=== PATIENT | female | born 1975 | race African-American/Black ===

== ENCOUNTER 2017-07-22 15:22 | Inpatient (IN) | payer MEDICAID ==
[~2017-07-22] VITALS: Ht 167.6 cm; Wt 86.1 kg
[~2017-07-22 15:22] MED LIST: BENZ2TAB10 PO; QUET300T2 PO; TRAZ150T79 PO
[2017-07-22 16:34] VITALS: BP 119/72
[2017-07-22] MEDS: LORazepam 2 MG TABLET PO PRN (17:00)
[2017-07-22] MEDS ORDERED: PNEUMOCOCCAL VACCINE POLYVALENT 0.5 ML VIAL [PPSV23] IM ONE (17:00)
[2017-07-22] MEDS ORDERED: INFLUENZA VIRUS VACCINE QVS 2017-18 (3YR+)/PF 60 MCG/0.5 ML SYRINGE IM ONE (17:00)
[2017-07-22 17:18] VITALS: BP 120/88
[2017-07-23] MEDS ORDERED: PETROLATUM,WHITE 71 GM JELLY TP PRN (07:15)
[2017-07-23] MEDS ORDERED: BENZOCAINE/MENTHOL LOZENGE MM PRN (07:15)
[2017-07-23] MEDS ORDERED: ALBUTEROL SULFATE HFA 90 MCG/PUFF 8 GM INHALER IH PRN (07:15)
[2017-07-23] MEDS ORDERED: IBUPROFEN 600 MG TABLET PO PRN (07:15)
[2017-07-23] MEDS ORDERED: CloNIDine HCL 0.1 MG TABLET PO PRN (07:15)
[2017-07-23] MEDS ORDERED: LOPERAMIDE HCL 2 MG CAPSULE PO PRN (07:15)
[2017-07-23] MEDS ORDERED: ACETAMINOPHEN 325 MG TABLET PO PRN (07:15)
[2017-07-23] MEDS ORDERED: ONDANSETRON HCL 4 MG TABLET PO PRN (07:15)
[2017-07-23] MEDS ORDERED: BACITRACIN 28.4 GM OINTMENT TP PRN (07:15)
[2017-07-23] MEDS ORDERED: MAGNESIUM HYDROXIDE SUSPENSION 30 ML UDCUP PO PRN (07:15)
[2017-07-23] MEDS ORDERED: MAG HYDROX/AL HYDROX/SIMETH ES 30 ML SUSPENSION UDCUP PO PRN (07:15)
[2017-07-23 08:31] LABS: BASOPHILS % (AUTO) 0.5 % (0.0-2.0); EOSINOPHILS % (AUTO) 6.8 % (1.0-6.0); HEMATOCRIT 39.1 % (36-46); HEMOGLOBIN 13.1 g/dL (12.0-16.0); LYMPHOCYTES # (AUTO) 2.9 K/uL (1.0-4.8); LYMPHOCYTES % (AUTO) 48.4 % (22.0-44.0); MEAN CORPUSCULAR HEMOGLOBIN 30.8 pg (26.0-34.0); MEAN CORPUSCULAR HGB CONC 33.4 G/dL (31.0-37.0); MEAN CORPUSCULAR VOLUME 92 fL (80-100); MONOCYTES # (AUTO) 0.4 K/uL (0.1-1.0); NEUTROPHILS # (AUTO) 2.2 K/uL (1.8-7.7); NEUTROPHILS % (AUTO) 37.3 % (40.0-70.0); PLATELET COUNT (AUTO) 267 K/uL (150-450); RED BLOOD CELL COUNT(AUTO) 4.24 MIL/uL (4.00-5.20); RED CELL DISTRIBUTION WIDTH 17.3 % (11.5-14.5)
[2017-07-23 08:44] LABS: HEMOGLOBIN A1C 5.5 % (4.5-6.2)
[2017-07-23 08:52] LABS: ALANINE AMINOTRANSFERASE 17 U/L (12-78); ALBUMIN 3.1 g/dL (3.4-5.0); ALKALINE PHOSPHATASE 118 U/L (46-116); ANION GAP 3 mmol/L (8-16); ASPARTATE AMINOTRANSFERASE 16 U/L (15-37); BILIRUBIN,TOTAL 0.3 mg/dL (0.1-1.0); CALCIUM, TOTAL 10.2 mg/dL (8.8-10.5); CARBON DIOXIDE 30 mmol/L (22-29); CHLORIDE 107 mmol/L (98-107); CREATININE 0.93 mg/dL (0.60-1.30); FREE T4 (FREE THYROXINE) 0.93 ng/dL (0.76-1.46); GLOMERULAR FILTR. RATE CALC > 60 mL/min (>60); GLUCOSE,RANDOM 99 mg/dL (70-110); HCG,QUANTITATIVE 2 mIU/mL (0-6); HDL CHOLESTEROL 52 mg/dL (40-60); POTASSIUM 4.6 mmol/L (3.5-5.1); SODIUM SERUM 140 mmol/L (136-145); THYROID STIMULATING HORMONE 0.96 uIU/mL (0.36-3.74); TOTAL PROTEIN, SERUM 6.5 g/dL (6.4-8.2); TRIGLYCERIDES 64 mg/dL (15-150); UREA NITROGEN, BLOOD 9 mg/dL (7-18)
[2017-07-23] MEDS: CHOLECALCIFEROL (VIT D3) 1,000 UNITS TABLET PO SCH (08:57)
[2017-07-23 09:01] LABS: CHOL/HDL RATIO 3.5 (3.9-5.7); CHOLESTEROL 180 mg/dL (131-200); LDL CHOL (CALC.) 115 mg/dL (0-130)
[2017-07-23] MEDS: LORazepam 2 MG TABLET PO PRN ×2 (11:31→16:27)
[2017-07-23 16:00] VITALS: BP 113/75
[2017-07-23] MEDS: TraZODone HCL 150 MG TABLET PO SCH (20:45)
[2017-07-23] MEDS: QUEtiapine FUMARATE 300 MG TABLET PO SCH (20:45)
[2017-07-23] MEDS: ZOLPIDEM TARTRATE 10 MG TABLET PO PRN (20:45)
[2017-07-23] MEDS: BENZTROPINE MESYLATE 2 MG TABLET PO SCH (20:45)
[2017-07-24 07:12] VITALS: BP 125/72
[2017-07-24] MEDS: CHOLECALCIFEROL (VIT D3) 1,000 UNITS TABLET PO SCH (08:45)
[2017-07-24] MEDS: LORazepam 2 MG TABLET PO PRN (16:13)
[2017-07-24 16:19] VITALS: BP 105/61
[2017-07-24] MEDS: QUEtiapine FUMARATE 300 MG TABLET PO SCH (20:26)
[2017-07-24] MEDS: TraZODone HCL 150 MG TABLET PO SCH (20:26)
[2017-07-24] MEDS: BENZTROPINE MESYLATE 2 MG TABLET PO SCH (20:26)
[2017-07-24] MEDS: ZOLPIDEM TARTRATE 10 MG TABLET PO PRN (21:00)
[2017-07-25 07:04] VITALS: BP 110/72
[2017-07-25 08:23] VITALS: BP 103/60
[2017-07-25] MEDS: LORazepam 2 MG TABLET PO PRN ×2 (09:16→16:26)
[2017-07-25] MEDS: CHOLECALCIFEROL (VIT D3) 1,000 UNITS TABLET PO SCH (09:16)
[2017-07-25 16:31] VITALS: BP 122/74
[2017-07-25] MEDS: TraZODone HCL 150 MG TABLET PO SCH (20:00)
[2017-07-25] MEDS: QUEtiapine FUMARATE 300 MG TABLET PO SCH (20:00)
[2017-07-25] MEDS: BENZTROPINE MESYLATE 2 MG TABLET PO SCH (20:00)
[2017-07-25] MEDS: ZOLPIDEM TARTRATE 10 MG TABLET PO PRN (21:01)
[2017-07-26 00:28] VITALS: BP 119/68
[2017-07-26 08:36] VITALS: BP 116/69
[2017-07-26] MEDS: CHOLECALCIFEROL (VIT D3) 1,000 UNITS TABLET PO SCH (08:44)
[2017-07-26] MEDS: LORazepam 2 MG TABLET PO PRN ×2 (08:44→16:48)
[2017-07-26 16:08] VITALS: BP 116/75
[2017-07-26] MEDS: BENZTROPINE MESYLATE 2 MG TABLET PO SCH (20:15)
[2017-07-26] MEDS: TraZODone HCL 150 MG TABLET PO SCH (20:15)
[2017-07-26] MEDS: QUEtiapine FUMARATE 300 MG TABLET PO SCH (20:16)
[2017-07-27 05:23] VITALS: BP 117/68
[2017-07-27 08:07] VITALS: BP 111/74
[2017-07-27] MEDS: CHOLECALCIFEROL (VIT D3) 1,000 UNITS TABLET PO SCH (08:17)
[2017-07-27] MEDS: LORazepam 2 MG TABLET PO PRN (08:17)
[2017-07-27] MEDS ORDERED: VITAD1000 PO (11:22)
== END 2017-07-27 13:30 | disposition home or self-care (01) | DRG 750 ==
LOC: B3A 16:09
PROVIDERS: ADMIT Psychiatry & Neurology Child & Adolescent Psychiatry; ATTEND Psychiatry & Neurology Child & Adolescent Psychiatry
PROC: 3E0234Z Introduction of Serum, Toxoid and Vaccine into Muscle, Percutaneous Approach (ICD-10-PCS; principal; 2017-07-23)
DX: F25.0 Schizoaffective disorder, bipolar type (principal); E55.9 Vitamin D deficiency, unspecified; E78.5 Hyperlipidemia, unspecified; F17.210 Nicotine dependence, cigarettes, uncomplicated; G47.00 Insomnia, unspecified; J44.9 Chronic obstructive pulmonary disease, unspecified; K21.9 Gastro-esophageal reflux disease without esophagitis; K59.00 Constipation, unspecified; Z91.5 Personal history of self-harm; Z88.5 Allergy status to narcotic agent; Z88.8 Allergy status to other drugs, medicaments and biological substances; Z23 Encounter for immunization
CPT/HCPCS: 83036; 84439; 84443; 90471